=== PATIENT | female | born 1985 | race Caucasian/White ===

== ENCOUNTER → 2017-02-01 | Outpatient (CLI) | payer OTHER ==
[~2017-02-01] VITALS: Ht 172.7 cm; Wt 59.0 kg
[~2017-02-01] MED LIST: ANIMAL CHEWS1 EACH PO; BENADRYL25 MG PO; ENDOCET 5-3251 EACH PO; IBUPROFEN800 MG PO; PROMETHAZINE HC25 M1 PO; PROZAC20 MG PO; TYLENOL REGULA325 MG PO; ZANTAC150 MG PO
[2017-02-01 13:59] VITALS: BP 102/58
== END | disposition home or self-care (01) ==
LOC: IVINF 13:50
DX: O36.0930 Maternal care for other rhesus isoimmunization, third trimester, not applicable or unspecified (principal); Z3A.28 28 weeks gestation of pregnancy; Z67.31 Type AB blood, Rh negative
CPT/HCPCS: 96372; J2790

== ENCOUNTER 2017-04-01 09:54 | Inpatient (IN) | payer OTHER ==
[2017-04-01] VITALS (23 sets, daily range): BP systolic 94–130; BP diastolic 50–68
[~2017-04-01] VITALS: Ht 172.7 cm; Wt 65.5 kg
[2017-04-01 11:11] LABS: EOSINOPHIL (%) 1.1 % (0-5); EOSINOPHIL COUNT 0.1 K/uL (0-0.3); HEMATOCRIT 35.9 % (36.0-46.0); IMMATURE GRANULOCYTE COUNT 0.1 K/uL; INSTRUMENT ABS NEUTROPHIL CT 6.9 K/uL; LYMPHOCYTE COUNT 1.6 K/uL (1.0-2.8); MCH 29.5 PG (29.0-34.0); MCHC 33.1 G/DL (30.0-36.0); MCV 88.9 FL (83-99); MEAN PLAT.VOLUME 10.7 uM^3 (9.5-12.4); MONOCYTE (%) 6.4 % (3-12); MONOCYTE COUNT 0.6 K/uL (0-0.8); NEUTROPHIL (%) 74.5 % (45-76); NEUTROPHIL COUNT 6.9 K/uL (1.8-6.4); PLATELET COUNT 209 K/uL (156-360); RBC DIS.WIDTH-CV 12.8 % (11.8-14.6); RBC DIS.WIDTH-SD 41.8 % (39-53); RED BLOOD COUNT 4.04 M/uL (3.80-5.20); WHITE BLOOD COUNT 9.3 K/uL (4.1-10.2)
[2017-04-02] VITALS (8 sets, daily range): BP systolic 98–107; BP diastolic 57–68
[2017-04-02] MEDS ORDERED: IBUPROFEN800 MG PO (00:13)
[2017-04-03 07:49] VITALS: BP 112/58
== END 2017-04-03 13:20 | disposition home or self-care (01) | DRG 775 ==
LOC: LDRP-OP 09:54 → 2WEST 09:55 → LDRP-OP 05-21 15:28
PROVIDERS: Nurse Practitioner
PROC: 3E0R3CZ (ICD-10-PCS; principal; 2017-04-01)
PROC: 00HU33Z Insertion of Infusion Device into Spinal Canal, Percutaneous Approach (ICD-10-PCS; principal; 2017-04-01)
PROC: 10E0XZZ Delivery of Products of Conception, External Approach (ICD-10-PCS; principal; 2017-04-01)
DX: O63.9 Long labor, unspecified (principal); O99.344 Other mental disorders complicating childbirth; F41.8 Other specified anxiety disorders; Z3A.37 37 weeks gestation of pregnancy; Z37.0 Single live birth
CPT/HCPCS: 85025; C1755; J3010; J7120